=== PATIENT | male | born 1990 | race African-American/Black ===

== ENCOUNTER 2017-08-17 12:37 | Emergency (ER) | payer MEDICAID ==
[~2017-08-17] VITALS: Ht 180.3 cm; Wt 67.0 kg
[2017-08-17] MEDS ORDERED: CefTRIAXone SODIUM 1 GM/VIAL IM ONE (13:45)
[2017-08-17] MEDS ORDERED: LIDOCAINE HCL/PF 1% 2 ML VIAL IM ONE (13:45)
[2017-08-17] MEDS ORDERED: AZITHROMYCIN 250 MG TABLET PO ONE (13:45)
[2017-08-17 14:57] LABS: APPEARANCE,URINE CLEAR (CLEAR); GLUCOSE, URINE (UA) NEGATIVE (NEGATIVE); KETONES,URINE NEGATIVE (NEGATIVE); LEUKOCYTE ESTERASE ,URINE NEGATIVE (NEGATIVE); OCCULT BLOOD,URINE NEGATIVE (NEGATIVE); PH,URINE 5.5 (5.0-8.0); PROTEIN,URINE NEGATIVE (NEGATIVE)
[2017-08-17 15:00] VITALS: BP 132/68
[2017-08-17 15:02] LABS: ADD UA MICROSCOPIC NO
[2017-08-20 23:18] LABS: GC DNA N.A. AMPLIFY Negative (Negative)
== END 2017-08-17 15:43 | disposition home or self-care (01) ==
LOC: EMS 12:41
DX: N34.2 Other urethritis (principal); F12.90 Cannabis use, unspecified, uncomplicated; F17.210 Nicotine dependence, cigarettes, uncomplicated
CPT/HCPCS: 81003; 87491; 87591; 96372; 99284; 99406; J0696; J3490